=== PATIENT | male | born 1960 | race African-American/Black ===

== ENCOUNTER 2019-04-23 10:22 | Emergency (ER) | payer BC, OTHER ==
--- NOTE | 2019-04-23 10:44 | ED Physician Documentation ---
General Adult - HISTORIAN Historian: patient - HPI Stated Complaint: left middle finger lac Chief Complaint: General Adult Onset: minutes Timing: still present Severity: moderate Further Comments: yes (Pt is a 58 yo aa male who was using a table saw and sustained a laceration to the dorsal side of his L middle finger, through the fingernail, long-term distally from the nail bed, ie, partially across the diameter of the nail. Tetanus is not utd.) - ROS CONST: no problems EYES/ENT: none CVS/RESP: none GI/: none MS/SKIN/LYMPH: other (L middle finger laceration) - PAST HX Past History: CHF, hypertension Allergies/Adverse Reactions: Allergies Allergy/AdvReac Type Severity Reaction Status Date / Time No Known Allergies Allergy Verified 04/23/19 10:35 Home Medications: Ambulatory Orders Medication Instructions Recorded Carvedilol [Coreg] 6.25 mg PO BS 04/23/19 Ciprofloxacin HCl [Cipro] 500 mg PO BID #14 tablet 04/23/19 Fluticasone Propion/Salmeterol 1 spray INH BID 04/23/19 [Fluticasone-Salmeterol 250-50] Metformin HCl [Metformin HCl ER] 500 mg PO BID 04/23/19 Sacubitril/Valsartan [Entresto 97 1 tab PO BID 04/23/19 mg-103 mg Tablet] Spironolactone [Aldactone] 25 mg PO DAILY 04/23/19 - SOCIAL HX Smoking History: cigarettes - FAMILY HX Family History: No - VITAL SIGNS Vital Signs: Vital Signs Temp Pulse Resp BP Pulse Ox 97.4 F L 61 19 207/111 99 04/23/19 10:30 04/23/19 10:30 04/23/19 10:30 04/23/19 10:30 04/23/19 10:30 - REVIEWED ASSESSMENTS Nursing Assessment Reviewed: Yes Vitals Reviewed: Yes Progress - Results/Orders Results/Orders: X-ray L middle finger: Open wound of the third distal phalanx dorsally, extending to the cortex of the distal phalangeal tuft, without evidence of acute fracture. This is best characterized on the lateral film. Tdap 0.5 ml in ER. Rx Cipro 500 mg po bid x 7 days. - Progress Progress: There is a laceration horizontally across the L middle finger fingernail. It is not amenable to suturing. It should be expected to fill in with granulation tissue and the nail will eventually will grow out over it, so that the injury will no longer be seen. However x-ray (see below) shows that the laceration almost reaches the bone, which is of concern for possible development of osteomyelitis. X-ray L middle finger: Open wound of the third distal phalanx dorsally, extending to the cortex of the distal phalangeal tuft, without evidence of acute fracture. This is best characterized on the lateral film. d/c instructions: Rx Ciprofloxacin 500 mg. Take one every 12 hours for 7 days. Return to ER if you develop any signs of infection such as tenderness, where you had not had tenderness, warmth, redness, or swelling. Tough you did not fracture a bone, you are at risk for a bone infection in a nearly exposed bone, which could be a serious health problem. Keep wound covered. Rx [place] (5/325). Take one or two every 4 to 6 hours as needed for pain. General Adult Physical Exam - PHYSICAL EXAM GENERAL APPEARANCE: moderate distress EENT: eye inspection normal NECK: normal inspection, supple RESPIRATORY: no resp distress, chest non-tender, breath sounds normal CVS: reg rate & rhythm, heart sounds normal BACK: normal inspection SKIN: other (There is a laceration horizontally across the L middle finger fingernail.) EXTREMITIES: normal range of motion NEURO: oriented X3, motor nml, sensation nml Discharge Clincal Impression: Finger laceration Qualifiers: Encounter type: initial encounter Finger: middle finger Damage to nail status: with damage Foreign body presence: without foreign body Laterality: left Qualified Code(s): S61.313A - Laceration without foreign body of left middle finger with damage to nail, initial encounter Prescriptions: Ciprofloxacin HCl [Cipro] 500 mg PO BID #14 tablet Referrals: Yong Ramirez MD [Primary Care Provider] - 2 Days Disposition: 01 HOME, SELF-CARE Decision to Admit: NO Decision Time: 11:30
--- NOTE | 2019-04-23 11:06 | Diagnostic Imaging Report ---
GAETANO ASHTON [facility] [address] [facility] [address] [id number] Report Submission Date: Apr 23, 2019 11:03:07 AM CDT Patient Study Name: FAHAD WRIGHT Date: Apr 23, 2019 10:34:48 AM CDT Modality Type: DX Gender: M Description: FINGER 2 VIEWS OR MORE : 60 Institution: [facility] Physician: GAETANO ASHTON HISTORY: 58-year-old male with left third finger hacksaw injury. COMPARISON: None available. TECHNIQUE: Three views of the left third finger were performed. IMPRESSION: Open wound of the third distal phalanx dorsally, extending to the cortex of the distal phalangeal tuft, without evidence of acute fracture. This is best characterized on the lateral film. Electronically signed on Apr 23, 2019 11:03:07 AM CDT by: Cedric BOJORQUEZ
[2019-04-23] MEDS: DIPH,PERTUSS(ACELL),TET VAC/PF 0.5 ML DISP.SYRIN IM ONE (11:14)
[2019-04-23 11:36] VITALS: BP 198/100
== END 2019-04-23 11:33 | disposition home or self-care (01) ==
LOC: ED 10:22
DX: S61.313A Laceration without foreign body of left middle finger with damage to nail, initial encounter (principal); W27.0XXA Contact with workbench tool, initial encounter; Y93.89 Activity, other specified; Y99.8 Other external cause status